=== PATIENT | female | born 1965 | race Caucasian/White ===

== ENCOUNTER → 2020-01-31 11:24 | Outpatient (CLI) | payer SELFPAY ==
--- NOTE | ~2020-01-31 | DEXA_ITS ---
Bone Density Report Name: Tonya Rothman Age: 54 Sex: Female Ethnicity: White Date of : 1965 Indication: postmenopausal; screening for osteoporosis; prior fracture; Referring Provider: STEF, MARION Hawkins Study: Bone densitometry was performed. Exam Date: January 31, 2020 Accession number: [id number] Bone Density: Region BMD T-score Z-score Classification AP Spine (L1-L4) 0.884 -1.5 -0.5 Osteopenia Femoral Neck (Left) 0.760 -0.8 0.1 Normal Total Hip (Left) 0.973 0.3 0.9 Normal Femoral Neck (Right) 0.809 -0.4 0.6 Normal Total Hip (Right) 0.953 0.1 0.7 Normal Total Hip Mean 0.963 0.2 0.8 Normal World Health Organization criteria for BMD impression classify patients as: Normal (T-score at or above -1.0), Osteopenia (T-score between -1.0 and -2.5), or Osteoporosis (T-score at or below -2.5). 10-year Fracture Risk(1): Major Osteoporotic Fracture 8.9% Hip Fracture 0.4% Reported Risk Factors: [place] (), Neck BMD=0.760, BMI=26.7, previous fracture (1) FRAX(R) Version 3.08. Fracture probability calculated for an untreated patient. Fracture probability may be lower if the patient has received treatment. Previous Exams: Region Exam Age BMD T-score BMD Change BMD Change Date g/cm2 vs Baseline vs Previous AP Spine(L1-L4) 01/31/2020 54 0.884 -1.5 -0.085* -0.085* 10/09/2013 47 0.969 -0.7 Total Hip(Left) 01/31/2020 54 0.973 0.3 -0.050* -0.050* 10/09/2013 47 1.023 0.7 Total Hip(Right) 01/31/2020 54 0.953 0.1 -0.059* -0.059* 10/09/2013 47 1.012 0.6 *Denotes significance at 95% confidence level, LSC for AP Spine = 0.022 g/cm2, LSC for Total Hip = 0.027 g/cm2 Clinical Information Provided by Patient: Has had a low trauma fracture Patient maximum height was 64.5 Menopause Age: 41 No regular weight bearing exercise Drinks caffeinated beverages Onset of menses at age 14 Number of children 2 Impression: The patient has low bone mass, based on the Total Spine T-score. The patient has an estimated ten-year risk of hip fracture of 0.4% and an estimated ten-year risk of major fracture of 8.9%, based on the WHO FRAX algorithm. The patient has risk factors, including: previous fracture. The BMD for the AP Spine(L1-L4) decreased, changing by -0.085 since the last DXA exam. The BMD for the Total Hip(Left) decreased, changing by -0.050 since the last DXA exam. The BMD for t
== END ==
PROVIDERS: PCP Internal Medicine; Visit Provider Internal Medicine
DX: Z78.0 Asymptomatic menopausal state (principal); M85.80 Other specified disorders of bone density and structure, unspecified site
CPT/HCPCS: 77080

== ENCOUNTER 2020-02-14 09:34 | Outpatient (CLI) | payer SELFPAY ==
--- NOTE | 2020-02-19 13:02 | WPDHOLTEREM ---
Holter/Event Monitor Holter/Event Monitor Date of procedure: 02/14/20 Procedure Type: 48 hour holter monitor Indications: Palpitations Conclusion: 1. 48 hour holter monitor on 02/14/20. 2. Underlying rhythm is sinus rhythm. HR range 53-125 bpm; average HR 80 bpm. 3. There are 5 premature supraventricular complexes. No supraventricular tachycardia. 4. There are 177 premature ventricular complexes. No ventricular tachycardia. 5. No sinoatrial or atrioventricular blocks. No significant pauses greater than 2 seconds. 6. No symptoms available for correlation.
== END 2020-02-14 09:35 | disposition home or self-care (01) ==
PROVIDERS: PCP Internal Medicine; Visit Provider Internal Medicine
DX: R00.2 Palpitations (principal); I49.3 Ventricular premature depolarization
CPT/HCPCS: 93225; 93226

== ENCOUNTER → 2021-01-09 12:23 | Outpatient (CLI) | payer SELFPAY ==
--- NOTE | ~2021-01-09 | DEXA_ITS ---
Bone Density Report Name: Tonya Rothman Age: 55 Sex: Female Ethnicity: White Date of : 1965 Indication: osteopenia; height loss; prior fracture; hysterectomy; postmenopausal Referring Provider: Elsy Palafox Study: Bone densitometry was performed. Exam Date: January 09, 2021 Accession number: [id number] Bone Density: Region BMD T-score Z-score Classification AP Spine (L1-L4) 0.853 -1.8 -0.8 Osteopenia Femoral Neck (Left) 0.761 -0.8 0.2 Normal Total Hip (Left) 0.988 0.4 1.0 Normal Femoral Neck (Right) 0.740 -1.0 0.0 Normal Total Hip (Right) 0.930 -0.1 0.5 Normal Total Hip Mean 0.959 0.2 0.8 Normal World Health Organization criteria for BMD impression classify patients as: Normal (T-score at or above -1.0), Osteopenia (T-score between -1.0 and -2.5), or Osteoporosis (T-score at or below -2.5). 10-year Fracture Risk(1): Major Osteoporotic Fracture 9.8% Hip Fracture 0.5% Reported Risk Factors: [place] (), Neck BMD=0.740, BMI=26.8, previous fracture (1) FRAX(R) Version 3.08. Fracture probability calculated for an untreated patient. Fracture probability may be lower if the patient has received treatment. Previous Exams: Region Exam Age BMD T-score BMD Change BMD Change Date g/cm2 vs Baseline vs Previous AP Spine(L1-L4) 01/09/2021 55 0.853 -1.8 -0.117* -0.032* 01/31/2020 54 0.884 -1.5 -0.085* -0.085* 10/09/2013 47 0.969 -0.7 Total Hip(Left) 01/09/2021 55 0.988 0.4 -0.036* 0.014 01/31/2020 54 0.973 0.3 -0.050* -0.050* 10/09/2013 47 1.023 0.7 Total Hip(Right) 01/09/2021 55 0.930 -0.1 -0.081* -0.023 01/31/2020 54 0.953 0.1 -0.059* -0.059* 10/09/2013 47 1.012 0.6 *Denotes significance at 95% confidence level, LSC for AP Spine = 0.022 g/cm2, LSC for Total Hip = 0.027 g/cm2 Clinical Information Provided by Patient: Has had a low trauma fracture Has used the following medications: Vitamin D, Calcium, MULTI-VITAMIN Has the following medical conditions: Hysterectomy Patient maximum height was 64.5 Menopause Age: 41 No regular weight bearing exercise Drinks caffeinated beverages Onset of menses at age 14 Number of children 2 Impression: The patient has low bone mass, based on the Total Spine T-score. The patient has an estimated ten-year risk of hip fracture of 0.5% and an est
== END ==
PROVIDERS: PCP Internal Medicine
DX: M80.00XS Age-related osteoporosis with current pathological fracture, unspecified site, sequela (principal); M85.88 Other specified disorders of bone density and structure, other site
CPT/HCPCS: 77080

== ENCOUNTER → 2021-07-17 14:29 | Outpatient (CLI) | payer SELFPAY ==
--- NOTE | ~2021-07-17 | MM_ITS ---
EXAMINATION: MM screening alberto BI w angelic HISTORY: Screening mammogram TECHNIQUE: Craniocaudal and mediolateral oblique 3-D tomosynthesis images were obtained and synthetic 2-D images were generated. CAD analysis was submitted and interpreted. COMPARISON: 12/01/2018 bilateral screening mammogram 09/22/2017 bilateral diagnostic mammogram 09/14/2017, 04/22/2016 bilateral screening mammogram examinations BREAST PARENCHYMAL COMPOSITION: The breasts are extremely dense, which lowers the sensitivity of mamm ography. FINDINGS: There is no evidence of suspicious mass, calcification, or architectural distortion to sugg est malignancy in either breast. There has been no suspicious interval change. IMPRESSION: 1. No mammographic evidence of malignancy. 2. Recommend routine screening mammography in one year. BI-RADS Category 1: Negative Reviewed, dictated and finalized at location A.
== END ==
PROVIDERS: PCP Internal Medicine
DX: Z12.31 Encounter for screening mammogram for malignant neoplasm of breast (principal)
CPT/HCPCS: 77063; 77067

== ENCOUNTER → 2022-07-22 12:14 | Outpatient (CLI) | payer SELFPAY ==
--- NOTE | ~2022-07-22 | MM_ITS ---
EXAMINATION: MM screening alberto BI w angelic HISTORY: Screening TECHNIQUE: Craniocaudal and mediolateral oblique 3-D tomosynthesis images were obtained and synthetic 2-D images were generated. CAD analysis was submitted and interpreted. COMPARISON: July 17, 2021, December 01, 2018 bilateral screening mammogram examinations BREAST PARENCHYMAL COMPOSITION: The breasts are extremely dense, which lowers the sensitivity of mamm ography. FINDINGS: There is no evidence of suspicious mass, calcification, or architectural distortion to sugg est malignancy in either breast. There has been no suspicious interval change. IMPRESSION: 1. No mammographic evidence of malignancy. 2. Recommend routine screening mammography in one year. BI-RADS Category 1: Negative Reviewed, dictated and finalized at location A.
== END ==
DX: Z12.31 Encounter for screening mammogram for malignant neoplasm of breast (principal)
CPT/HCPCS: 77063; 77067

== ENCOUNTER 2022-09-07 09:36 | Outpatient (CLI) | payer SELFPAY ==
--- NOTE | ~2022-09-07 | XR_ITS ---
EXAMINATION: XR barium swallow DATE: 09/07/2022 10:30 INDICATION: Chest tightness. Stomach problems. TECHNIQUE: The patient drank thick barium, gas-producing crystals, and thin barium. Fluoroscopy of th e hypopharynx and esophagus was performed. Fluoroscopy exposure time was 0.3 minutes. The total numbe r of images was 264. The dose-area product was 0.323 Gy-cm^2. COMPARISON: None. FINDINGS: There is no mass or stricture of the esophagus. Esophageal motility is normal. There is no hiatal hernia. There was no gastroesophageal reflux with provocative maneuvers. IMPRESSION: 1. Normal esophagram. Reviewed, dictated and finalized at location A. IMPRESSION: 1. Normal esophagram.
== END 2022-09-07 09:37 | disposition home or self-care (01) ==
PROVIDERS: PCP Internal Medicine; Visit Provider Internal Medicine
DX: K31.9 Disease of stomach and duodenum, unspecified (principal)
CPT/HCPCS: 74220

== ENCOUNTER → 2022-09-07 10:35 | Outpatient (CLI) | payer SELFPAY ==
--- NOTE | ~2022-09-07 | XR_ITS ---
EXAMINATION: XR chest 2V 09/07/2022 11:32 INDICATION: Shortness of breath PROCEDURE: 2 view chest COMPARISON: 01/17/2019 FINDINGS: The lungs are clear. The cardiomediastinal silhouette is within normal limits. There are no pleural effusions. There is no pneumothorax suspected. IMPRESSION: 1: NO ACUTE CARDIOPULMONARY DISEASE. Reviewed, dictated and finalized at location []
== END ==
PROVIDERS: PCP Internal Medicine; Visit Provider Internal Medicine
DX: R06.02 Shortness of breath (principal)
CPT/HCPCS: 71046

== ENCOUNTER → 2023-02-24 10:14 | Outpatient (CLI) | payer SELFPAY ==
--- NOTE | ~2023-02-24 | DEXA_ITS ---
Bone Density Report Name: MIKE ALVAREZ Age: 57 Sex: Female Ethnicity: White Date of : 1965 Indication: osteopenia; monitoring treatment; prior fracture; hysterectomy; postmenopausal Referring Provider: Elsy Palafox Study: Bone densitometry was performed. Exam Date: February 24, 2023 Accession number: [id number] Bone Density: Region BMD T-score Z-score Classification AP Spine (L1-L4) 0.862 -1.7 -0.5 Osteopenia Femoral Neck (Left) 0.710 -1.3 -0.1 Osteopenia Total Hip (Left) 0.924 -0.1 0.6 Normal Femoral Neck (Right) 0.728 -1.1 0.0 Osteopenia Total Hip (Right) 0.878 -0.5 0.2 Normal Total Hip Mean 0.901 -0.3 0.4 Normal World Health Organization criteria for BMD impression classify patients as: Normal (T-score at or above -1.0), Osteopenia (T-score between -1.0 and -2.5), or Osteoporosis (T-score at or below -2.5). 10-year Fracture Risk: FRAX not reported because: Treated for osteoporosis Previous Exams: Region Exam Age BMD T-score BMD Change BMD Change Date g/cm2 vs Baseline vs Previous AP Spine(L1-L4) 02/24/2023 57 0.862 -1.7 -0.107* 0.009 01/09/2021 55 0.853 -1.8 -0.117* -0.032* 01/31/2020 54 0.884 -1.5 -0.085* -0.085* 10/09/2013 47 0.969 -0.7 Total Hip(Left) 02/24/2023 57 0.924 -0.1 -0.099* -0.064* 01/09/2021 55 0.988 0.4 -0.036* 0.014 01/31/2020 54 0.973 0.3 -0.050* -0.050* 10/09/2013 47 1.023 0.7 Total Hip(Right) 02/24/2023 57 0.878 -0.5 -0.133* -0.052* 01/09/2021 55 0.930 -0.1 -0.081* -0.023 01/31/2020 54 0.953 0.1 -0.059* -0.059* 10/09/2013 47 1.012 0.6 *Denotes significance at 95% confidence level, LSC for AP Spine = 0.022 g/cm2, LSC for Total Hip = 0.027 g/cm2 Clinical Information Provided by Patient: Has had a low trauma fracture Is being treated for osteoporosis Has used the following medications: Fosamax (i.e. alendronate), Vitamin D, Calcium, MULTI-VITAMIN Has the following medical conditions: Hysterectomy Patient maximum height was 64.5 Menopause Age: 41 No regular weight bearing exercise Does not regularly consume dairy products Drinks caffeinated beverages Onset of menses at age 14 Number of children 2 Impression: The patient has low bone mass, based on the Total Spine T-score. The patient has risk factors, includ
== END ==
PROVIDERS: PCP Internal Medicine
DX: M81.0 Age-related osteoporosis without current pathological fracture (principal); M85.88 Other specified disorders of bone density and structure, other site; M85.852 Other specified disorders of bone density and structure, left thigh; M85.851 Other specified disorders of bone density and structure, right thigh
CPT/HCPCS: 77080

== ENCOUNTER 2023-10-21 14:20 | Outpatient (CLI) | payer SELFPAY ==
--- NOTE | ~2023-10-21 | MM_ITS ---
EXAMINATION: MM screening alberto BI w angelic HISTORY: Screening TECHNIQUE: Craniocaudal and mediolateral oblique 3-D tomosynthesis images were obtained and synthetic 2-D images were generated. CAD analysis was submitted and interpreted. COMPARISON: Comparison to multiple prior studies sequentially, with oldest reviewed study dated 04/22. BREAST PARENCHYMAL COMPOSITION: Dense: The breasts are extremely dense, which lowers the sensitivity of mammography. FINDINGS: There is no evidence of suspicious mass, calcification, or architectural distortion to sugg est malignancy in either breast. There has been no suspicious interval change. IMPRESSION: 1. No mammographic evidence of malignancy. 2. Recommend routine screening mammography in one year. BI-RADS Category 1: Negative Reviewed, dictated and finalized at location B.
== END 2023-10-21 14:21 ==
DX: Z12.31 Encounter for screening mammogram for malignant neoplasm of breast (principal)
CPT/HCPCS: 77063; 77067

== ENCOUNTER 2025-01-10 10:16 | Outpatient (CLI) | payer SELFPAY ==
--- NOTE | ~2025-01-10 | DEXA_ITS ---
Bone Density Report Name: MIKE ALVAREZ Age: 59 Sex: Female Ethnicity: White Date of : 1965 Indication: osteopenia; monitoring treatment; prior fracture; hysterectomy; Referring Provider: Elsy Palafox Study: Bone densitometry was performed. Exam Date: January 10, 2025 Accession number: [id number] Bone Density: Region BMD T-score Z-score Classification AP Spine(L1-L4) 0.854 -1.8 -0.5 Osteopenia Femoral Neck (Left) 0.711 -1.2 0.0 Osteopenia Total Hip (Left) 0.902 -0.3 0.5 Normal Femoral Neck (Right) 0.723 -1.1 0.1 Osteopenia Total Hip (Right) 0.862 -0.7 0.2 Normal Total Hip Mean 0.882 -0.5 0.4 Normal World Health Organization criteria for BMD impression classify patients as: Normal (T-score at or above -1.0), Osteopenia (T-score between -1.0 and -2.5), or Osteoporosis (T-score at or below -2.5). 10-year Fracture Risk: FRAX not reported because: Treated for osteoporosis Previous Exams: -- Region Exam Age BMD T-score BMD Change BMD Change Date g/cm2 vs Baseline vs Previous -- AP Spine (L1-L4) 01/10/2025 59 0.854 -1.8 -11.9%* -0.9% 02/24/2023 57 0.862 -1.7 -11.1%* 1.1% 01/09/2021 55 0.853 -1.8 -12.0%* -3.6%* 01/31/2020 54 0.884 -1.5 -8.8%* -8.8%* 10/09/2013 47 0.969 -0.7 Total Hip(Left) 01/10/2025 59 0.902 -0.3 -11.8%* -2.3% 02/24/2023 57 0.924 -0.1 -9.7%* -6.4%* 01/09/2021 55 0.988 0.4 -3.5%* 1.5% 01/31/2020 54 0.973 0.3 -4.9%* -4.9%* 10/09/2013 47 1.023 0.7 Total Hip(Right) 01/10/2025 59 0.862 -0.7 -14.8%* -1.8% 02/24/2023 57 0.878 -0.5 -13.2%* -5.6%* 01/09/2021 55 0.930 -0.1 -8.0%* -2.4% 01/31/2020 54 0.953 0.1 -5.8%* -5.8%* 10/09/2013 47 1.012 0.6 -- *Denotes significance at 95% confidence level, LSC for AP Spine = 0.022 g/cm2, LSC for Total Hip = 0.027 g/cm2 Clinical Information Provided by Patient: Has had a low trauma fracture Is being treated for osteoporosis Has used the following medications: Fosamax (i.e. alendronate), Vitamin D, Calcium Has the following medical conditions: Hysterectomy Patient maximum height was 64.5 Menopause Age: 41 No regular weight bearing exercise Drinks caffeinated beverages Onset of menses at age 14 Number of children 2 Impression: The patient has low bone mass, based on the Total Spine T-score. The patient has risk factors, including: previous fracture. No significant bone loss was observed. Discussion: PATIENT UNDER TREATMENT WITH NO SIGNIFICANT BMD LOSS SINCE LAST EXAM. In an untreated patient, BMD typically declines with age. A lack of decline or gain is usually a sign that treatment is efficacious and fracture risk is reduced. It is important to ask patients whether they are taking their medications and to encourage continued and appropriate compliance with their osteoporosis therapies to reduce fracture risk. It is also important to review their risk factors and encourage appropriate calcium and vitamin D intakes, exercise, fall prevention and other lifestyle measures. Follow-Up: Consider a repeat BMD and Vertebral Fracture Assessment (VFA) exam in 2 years or sooner if medically necessary, to reassess this patient's status. Reported by: CHARITY on 01/10/2025 10:44:00 AM. Reviewed, dictated and finalized at location A.
== END 2025-01-10 10:17 | disposition home or self-care (01) ==
DX: M85.89 Other specified disorders of bone density and structure, multiple sites (principal); M80.00XS Age-related osteoporosis with current pathological fracture, unspecified site, sequela
CPT/HCPCS: 77080